=== PATIENT | male | born 1975 | race Caucasian/White ===

== ENCOUNTER → 2023-05-30 08:03 | Outpatient (CLI) | payer OTHER, SELFPAY ==
--- NOTE | 2023-05-30 | DI.MRI.S_ITS ---
PROCEDURE: MR HIP RT W CON INDICATIONS: RIGHT HIP PAIN TECHNIQUE: After the administration of 10 mL of dilute intra-articular Gadolinium contrast, coronal STIR of the bony pelvis; coronal and oblique axial T1 spin echo with fat saturation, axial T2 fast spin echo with fat saturation, sagittal T1 spin echo with and without fat saturation of the involved hip. COMPARISON: [facility], [place], [place] HIP INJECTION MR/CT RT, 05/30/2023, 8:30. [facility] Outside Film, CR, XR PELVIS WITH LATERAL HIP RIGHT, 03/22/2023, 14:57. FINDINGS: Image quality: Excellent. Bones and joints: Bone marrow of the pelvic ring and proximal femurs show normal signal throughout. No intraosseous lesions or fractures. No avascular necrosis of the femoral heads. Mild disc desiccation and facet hypertrophy are seen in the included lumbar spine. Tendons and ligaments: The gluteus medius and minimus tendons appear intact, without associated muscle atrophy. The proximal iliotibial band appears intact. The iliopsoas tendon appears intact, without adjacent bursal fluid collections. The origin of the hamstring tendon demonstrates mild tendinosis. The direct and indirect heads of the rectus femoris muscle origin appear intact. Labrum and cartilage: Small labral ossifications are seen at the anterosuperior labrum superimposed on chronic tearing. There appears to be mild diffuse labral degeneration. A not communicating paralabral cyst is seen posterior superiorly measuring up to 16 x 9 x 10 mm. No intra-articular loose body is seen. There is moderate grade partial-thickness cartilage irregularity at the superior aspect of the hip with subchondral cystic changes and marginal osteophyte formation. There is asphericity of the femoral head with an osseous protuberance at the anterosuperior femoral head/neck junction, which can be seen in the setting of cam type femoroacetabular impingement. Soft tissues: Visualized muscles demonstrate normal bulk and internal signal. Quadratus femoris muscle demonstrates no internal edema to suggest ischiofemoral impingement. The proximal sciatic neurovascular bundle appears intact. The included portions of the pelvis demonstrate no acute abnormality. Multiple diverticula are seen in the colon. IMPRESSION: 1. 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 A noncommunicating posterosuperior paralabral cyst measures up to 16 mm. 2. 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 3. Asphericity of the femoral head with an osseous protuberance at the anterosuperior femoral head/neck junction, which can be seen in the setting of cam-type femoroacetabular impingement. 4. Mild proximal hamstring tendinosis. 5. Mild degenerative changes in the included spine. 6. Colonic diverticulosis. Approved by: Keith Dee M.D. on 05/30/2023 at 13:35
--- NOTE | 2023-05-30 | DI.RAD.S_ITS ---
PROCEDURE: [place] HIP INJECTION MR/CT RT INDICATIONS: RIGHT HIP PAIN TECHNIQUE: The indications, alternatives, benefits, risks, and complications of the procedure were explained to the patient. Written informed consent was obtained and placed in the chart. The hip was examined fluoroscopically with the legs fixed in slight internal rotation, and a site for needle placement chosen for entry into the hip joint from an anterior approach. Care was taken to locate the common femoral artery and vein beforehand. The skin was prepped and draped in a sterile fashion, and 1% Lidocaine infiltrated from skin down to joint capsule. A spinal needle was inserted into the joint, and a small amount of iodinated contrast media injected to confirm intra-articular placement of the needle tip. This was followed by approximately 10 mL dilute solution of a gadolinium containing MR contrast agent. The needle was removed and a dressing was applied. The patient was given postprocedural instructions and sent to the MR suite for imaging. COMPARISON: None. FINDINGS: A single fluoroscopic spot image demonstrates intra-articular location of injected iodinated contrast. IMPRESSION: Successful fluoroscopically guided administration of dilute Gadolinium solution into the hip joint for MR arthrogram. Approved by: Keith Dee M.D. on 05/30/2023 at 9:58
== END ==
PROVIDERS: PCP Internal Medicine; Referring Provider Orthopaedic Surgery; Visit Provider Orthopaedic Surgery
DX: S73.191A Other sprain of right hip, initial encounter (principal); M94.251 Chondromalacia, right hip; M25.851 Other specified joint disorders, right hip; K57.90 Diverticulosis of intestine, part unspecified, without perforation or abscess without bleeding; M47.816 Spondylosis without myelopathy or radiculopathy, lumbar region
CPT/HCPCS: 27093; 73722; 77002